=== PATIENT | female | born 1930 | race Caucasian/White ===

== ENCOUNTER 2019-01-28 04:36 | Inpatient (IN) | payer MEDICARE ==
[~2019-01-28] VITALS: Ht 157.5 cm; Wt 46.4 kg
[2019-01-28] VITALS (9 sets, daily range): BP systolic 113–182; BP diastolic 58–117
--- NOTE | 2019-01-28 04:41 | NUR ---
Patient BIB ambulance from [facility] for a GI bleed. Patient states she has had blood in her stool periodically and weakness for a couple months. Patient is in no apparent distress. She is resting comfortably in gurney.
[2019-01-28] MEDS ORDERED: ASPI-515 PO (05:03)
[2019-01-28] MEDS ORDERED: ONDANSETRON 2MG/ML, 2ML ONE (05:09)
[2019-01-28] MEDS ORDERED: ONDANSETRON 2MG/ML, 2ML IVPush ONE (05:30)
[2019-01-28 05:40] LABS: TROPONIN I 0.577 ng/mL (0.000-0.045)
--- NOTE | 2019-01-28 05:41 | NUR ---
Critical lab value: troponin 0.577 notified
--- NOTE | 2019-01-28 05:47 | NUR ---
patient placed on hospital bed. Kept comfortable. no vomiting / diarrhea noted.
--- NOTE | 2019-01-28 06:24 | NUR ---
blood transfusion consent signed. PRBC transfusing at this time.
--- NOTE | 2019-01-28 07:02 | NUR ---
REPORT RECEIVED FROM [facility]. ASSUMING CARE OF PATIENT.
--- NOTE | 2019-01-28 07:34 | NUR ---
CAME INTO ROOM TO UPDATE VITALS. HOSPITALIST IN ROOM. PATIENT READING 81% ON 3L. PROGESSIVELY TITRATED O2 UP TO 6L. Addendum: 01/28/19 at 0738 by [email or web address] PATIENT READING 90% ON 6L NC
--- NOTE | 2019-01-28 07:53 | NUR ---
RADIOLOGY IN ROOM.
--- NOTE | 2019-01-28 07:53 | NUR ---
PATIENT 92% ON 8L OXYMASK
[2019-01-28] MEDS ORDERED: hydrALAzine 20 MG/ML, 1ML IVPush PRN (08:00)
[2019-01-28] MEDS ORDERED: ONDANSETRON 2MG/ML, 2ML IVPush PRN (08:00)
[2019-01-28] MEDS ORDERED: NITROGLYCERIN 0.4 MG BOTTLE (25 TABS) SL PRN (08:00)
[2019-01-28] MEDS ORDERED: TEMAZEPAM 15 MG CAPSULE PO PRN (08:00)
[2019-01-28] MEDS ORDERED: ACETAMINOPHEN 325 MG TABLET PO PRN (08:00)
[2019-01-28] MEDS ORDERED: morphine SULFATE 10 MG/ML, 1ML IVPush PRN (08:00)
[2019-01-28 08:21] LABS: BASOPHILS # (AUTO) 0.19 x10^3/uL (0-0.1); BASOPHILS % (AUTO) 2 % (0-1); EOSINOPHILS % (AUTO) 0 % (1-7); LYMPHOCYTES # (AUTO) 1.34 x10^3/uL (1-3.4); LYMPHOCYTES % (AUTO) 11 % (22-44); MD NO; MEAN CORPUSCULAR HEMOGLOBIN 26.5 pg (27.0-34.8); MEAN CORPUSCULAR VOLUME 82.9 fL (80-100); MEAN PLATELET VOLUME 7.1 fL (7.4-10.4); MONOCYTES # (AUTO) 0.52 x10^3/uL (0.2-0.8); MONOCYTES % (AUTO) 4 % (2-9); NEUTROPHILS # (AUTO) 10.03 x10^3/uL (1.8-6.8); NEUTROPHILS % (AUTO) 83 % (42-75); PLATELET COUNT 360 x10^3/uL (130-400); RED CELL DISTRIBUTION WIDTH 15.8 % (9.6-15.2)
[2019-01-28 08:34] LABS: ALANINE AMINOTRANSFERASE 61 U/L (12-78); ANION GAP 8 mmol/L (5-15); CALCIUM 7.9 mg/dL (8.5-10.1); CHLORIDE 110 mmol/L (98-107); CREATININE 1.11 mg/dL (0.55-1.02); IRON LEVEL 66 mcg/dL (50-170)
--- NOTE | 2019-01-28 08:39 | NUR ---
PROVIDER NOTIFIED OF ABGS.
[2019-01-28 08:43] LABS: HEMOGLOBIN A1C 5.9 % (4.2-6.3)
--- NOTE | 2019-01-28 08:52 | NUR ---
ANDRE BORJA UPDATED.
[2019-01-28 08:59] LABS: % IRON SATURATION 20 % (20-55); ALKALINE PHOSPHATASE 122 U/L (45-117); BILIRUBIN,TOTAL 1.1 mg/dL (0.2-1.0); TOTAL IRON BINDING CAPACITY 336 mcg/dL (250-450); TOTAL PROTEIN 6.4 g/dL (6.4-8.2)
[2019-01-28] MEDS ORDERED: FUROSEMIDE 20 MG/2 ML ONE (10:53)
[2019-01-28] MEDS ORDERED: FUROSEMIDE 40 MG/4 ML ONE (10:54)
[2019-01-28] MEDS ORDERED: ERGOCALCIFEROL 50,000 UNIT CAPSULE PO SCH (11:00)
[2019-01-28] MEDS: METOPROLOL TARTRATE 25 MG TABLET PO SCH ×2 (11:00→18:17)
[2019-01-28] MEDS ORDERED: FUROSEMIDE 40 MG/4 ML IV ONE (11:00)
[2019-01-28] MEDS: PANTOPRAZOLE 40 MG IV IVPush SCH ×2 (11:18→20:15)
[2019-01-28] MEDS ORDERED: FUROSEMIDE 20 MG/2 ML IV ONE (11:30)
[2019-01-28 11:53] LABS: O2 FLOW 12 L/min
[2019-01-28 12:11] LABS: CULTURE INDICATED? YES; MICROSCOPIC INDICATED
[2019-01-28 12:39] LABS: INTERNATIONAL NORMALIZED RATIO 1.01 (0.93-1.1); PROTHROMBIN TIME 10.6 Seconds (9.6-11.5)
[2019-01-28] MEDS: POTASSIUM CHLORIDE 20 MEQ PACKET PO SCH (16:06)
[2019-01-28] MEDS: CEFTRIAXONE PMX 1GM/50ML 50 ML IV SCH (16:07)
[2019-01-28] MEDS: FUROSEMIDE 20 MG/2 ML IV SCH (18:17)
[2019-01-28] MEDS: ATORVASTATIN 40 MG TABLET PO SCH (20:15)
[2019-01-29 00:28] VITALS: BP 126/67
[2019-01-29 04:55] LABS: BASOPHILS # (AUTO) 0.03 x10^3/uL (0-0.1); BASOPHILS % (AUTO) 0 % (0-1); EOSINOPHILS # (AUTO) 0.01 x10^3/uL (0-0.4); EOSINOPHILS % (AUTO) 0 % (1-7); LYMPHOCYTES % (AUTO) 12 % (22-44); MD NO; MEAN CORPUSCULAR HEMOGLOBIN 26.1 pg (27.0-34.8); MEAN CORPUSCULAR HGB CONC 31.6 g/dL (32.4-35.8); MEAN CORPUSCULAR VOLUME 82.7 fL (80-100); MEAN PLATELET VOLUME 6.9 fL (7.4-10.4); MONOCYTES # (AUTO) 0.78 x10^3/uL (0.2-0.8); MONOCYTES % (AUTO) 6 % (2-9); NEUTROPHILS # (AUTO) 10.51 x10^3/uL (1.8-6.8); NEUTROPHILS % (AUTO) 81 % (42-75); PLATELET COUNT 366 x10^3/uL (130-400); RED BLOOD COUNT 3.72 x10^6/uL (3.82-5.3); RED CELL DISTRIBUTION WIDTH 15.6 % (9.6-15.2)
[2019-01-29 05:07] LABS: ANION GAP 6 mmol/L (5-15); CALCIUM 8.4 mg/dL (8.5-10.1); CHLORIDE 107 mmol/L (98-107)
[2019-01-29 05:10] LABS: ALANINE AMINOTRANSFERASE 55 U/L (12-78); ALKALINE PHOSPHATASE 112 U/L (45-117); BILIRUBIN,TOTAL 0.6 mg/dL (0.2-1.0); CHOL/HDL RATIO 3.4; CHOLESTEROL, TOTAL 177 mg/dL (140-239); CREATININE 1.38 mg/dL (0.55-1.02); HDL CHOL % 29 % (28-40); HDL CHOLESTEROL (DIRECT) 52 mg/dL (40-60); LDL CHOLESTEROL,CALCULATED 101 mg/dL (54-169); LDL/HDL RATIO 1.9 (0.5-3.0); TOTAL PROTEIN 6.2 g/dL (6.4-8.2); TRIGLYCERIDES 122 mg/dL (50-200); VLDL CHOLESTEROL 24 mg/dL (0-25)
[2019-01-29 05:39] VITALS: BP 125/68
[2019-01-29] MEDS: METOPROLOL TARTRATE 25 MG TABLET PO SCH ×2 (05:40→16:58)
[2019-01-29 08:00] VITALS: BP 150/74
[2019-01-29] MEDS: FUROSEMIDE 20 MG/2 ML IV SCH (08:58)
[2019-01-29] MEDS: PANTOPRAZOLE 40 MG IV IVPush SCH ×2 (08:58→20:02)
[2019-01-29] MEDS: POTASSIUM CHLORIDE 20 MEQ PACKET PO SCH (08:58)
[2019-01-29] MEDS: FUROSEMIDE 40 MG TABLET PO SCH (10:30)
[2019-01-29] MEDS: CEFTRIAXONE PMX 1GM/50ML 50 ML IV SCH (13:00)
[2019-01-29 14:32] VITALS: BP 150/74
[2019-01-29 19:40] VITALS: BP 125/58
[2019-01-29] MEDS: ATORVASTATIN 40 MG TABLET PO SCH (20:02)
[2019-01-30 03:24] VITALS: BP 142/68
[2019-01-30 05:14] LABS: BASOPHILS # (AUTO) 0.03 x10^3/uL (0-0.1); BASOPHILS % (AUTO) 0 % (0-1); EOSINOPHILS # (AUTO) 0.11 x10^3/uL (0-0.4); EOSINOPHILS % (AUTO) 1 % (1-7); LYMPHOCYTES # (AUTO) 1.26 x10^3/uL (1-3.4); LYMPHOCYTES % (AUTO) 12 % (22-44); MD NO; MEAN CORPUSCULAR HEMOGLOBIN 26.3 pg (27.0-34.8); MEAN CORPUSCULAR HGB CONC 31.1 g/dL (32.4-35.8); MEAN CORPUSCULAR VOLUME 84.5 fL (80-100); MEAN PLATELET VOLUME 7.3 fL (7.4-10.4); MONOCYTES # (AUTO) 0.62 x10^3/uL (0.2-0.8); MONOCYTES % (AUTO) 6 % (2-9); NEUTROPHILS # (AUTO) 8.38 x10^3/uL (1.8-6.8); NEUTROPHILS % (AUTO) 81 % (42-75); PLATELET COUNT 322 x10^3/uL (130-400); RED BLOOD COUNT 3.48 x10^6/uL (3.82-5.3); RED CELL DISTRIBUTION WIDTH 15.7 % (9.6-15.2)
[2019-01-30 05:27] LABS: ANION GAP 7 mmol/L (5-15); CALCIUM 8.1 mg/dL (8.5-10.1); CHLORIDE 106 mmol/L (98-107); CREATININE 1.21 mg/dL (0.55-1.02)
[2019-01-30] MEDS: METOPROLOL TARTRATE 25 MG TABLET PO SCH ×2 (06:27→18:18)
[2019-01-30 06:57] VITALS: BP 138/76
[2019-01-30] MEDS: PANTOPRAZOLE 40 MG IV IVPush SCH (10:17)
[2019-01-30] MEDS: POTASSIUM CHLORIDE 20 MEQ PACKET PO SCH (10:17)
[2019-01-30] MEDS: FUROSEMIDE 40 MG TABLET PO SCH (10:18)
[2019-01-30] MEDS: CEFTRIAXONE PMX 1GM/50ML 50 ML IV SCH (13:19)
[2019-01-30 15:37] VITALS: BP 143/72
[2019-01-30] MEDS ORDERED: PROPOFOL 10 MG/ML, 20ML ONE (16:36)
[2019-01-30 18:41] VITALS: BP 140/67
[2019-01-30] MEDS: PANTOPROZOLE 40MG TABLET PO SCH (20:30)
[2019-01-30] MEDS: ATORVASTATIN 40 MG TABLET PO SCH (20:30)
[2019-01-31 00:43] VITALS: BP 104/72
[2019-01-31 01:08] VITALS: BP 137/65
[2019-01-31 05:03] LABS: BASOPHILS # (AUTO) 0.04 x10^3/uL (0-0.1); BASOPHILS % (AUTO) 1 % (0-1); EOSINOPHILS # (AUTO) 0.22 x10^3/uL (0-0.4); EOSINOPHILS % (AUTO) 3 % (1-7); LYMPHOCYTES # (AUTO) 1.21 x10^3/uL (1-3.4); LYMPHOCYTES % (AUTO) 17 % (22-44); MD NO; MEAN CORPUSCULAR HEMOGLOBIN 26.8 pg (27.0-34.8); MEAN CORPUSCULAR HGB CONC 31.6 g/dL (32.4-35.8); MEAN CORPUSCULAR VOLUME 84.6 fL (80-100); MEAN PLATELET VOLUME 7.6 fL (7.4-10.4); MONOCYTES # (AUTO) 0.68 x10^3/uL (0.2-0.8); MONOCYTES % (AUTO) 10 % (2-9); NEUTROPHILS # (AUTO) 4.91 x10^3/uL (1.8-6.8); NEUTROPHILS % (AUTO) 70 % (42-75); PLATELET COUNT 324 x10^3/uL (130-400); RED BLOOD COUNT 3.62 x10^6/uL (3.82-5.3); RED CELL DISTRIBUTION WIDTH 15.2 % (9.6-15.2)
[2019-01-31 05:05] LABS: ANION GAP 7 mmol/L (5-15); CALCIUM 8.2 mg/dL (8.5-10.1); CHLORIDE 103 mmol/L (98-107); CREATININE 1.12 mg/dL (0.55-1.02)
[2019-01-31] MEDS: METOPROLOL TARTRATE 25 MG TABLET PO SCH (05:48)
[2019-01-31 07:28] VITALS: BP 154/74
[2019-01-31] MEDS: PANTOPROZOLE 40MG TABLET PO SCH (09:18)
[2019-01-31] MEDS: FUROSEMIDE 40 MG TABLET PO SCH (09:18)
[2019-01-31] MEDS: POTASSIUM CHLORIDE 20 MEQ PACKET PO SCH (09:18)
[2019-01-31] MEDS ORDERED: ATOR40TA78 PO (12:27)
[2019-01-31] MEDS ORDERED: PANT40TA5 PO (12:27)
[2019-01-31] MEDS ORDERED: METO-93 PO (12:27)
[2019-01-31] MEDS ORDERED: FURO-93 PO (12:27)
[2019-01-31] MEDS ORDERED: SULF1TAB24 PO (12:29)
[2019-01-31] MEDS ORDERED: METOPROLOL SUCCINATE 50 MG TAB.ER.24H PO SCH (12:30)
[2019-01-31] MEDS: CEFTRIAXONE PMX 1GM/50ML 50 ML IV SCH ×2 (12:52→13:00)
[2019-01-31 13:13] VITALS: BP 146/81
[2019-01-31] MEDS ORDERED: POTA10TA5 PO (15:31)
[2019-02-01] MEDS ORDERED: POTASSIUM CHLORIDE 10 MEQ TABLET.ER PO SCH (09:00)
[2019-02-01] MEDS ORDERED: FUROSEMIDE 20 MG TABLET PO SCH (09:00)
== END 2019-01-31 15:55 | disposition home or self-care (01) | DRG 377 ==
LOC: ED 05:04 → EDIP 05:15 → 5SO 09:29 → DCLOUNGE 01-31 15:45
PROVIDERS: ADMIT Internal Medicine; ATTEND Family Medicine
PROC: 30233N1 Transfusion of Nonautologous Red Blood Cells into Peripheral Vein, Percutaneous Approach (ICD-10-PCS; principal; 2019-01-28)
PROC: 0DB68ZX Excision of Stomach, Via Natural or Artificial Opening Endoscopic, Diagnostic (ICD-10-PCS; 2019-01-30)
PROC: 0W3P8ZZ Control Bleeding in Gastrointestinal Tract, Via Natural or Artificial Opening Endoscopic (ICD-10-PCS; 2019-01-30)
DX: K25.4 Chronic or unspecified gastric ulcer with hemorrhage (principal); I21.4 Non-ST elevation (NSTEMI) myocardial infarction; J96.01 Acute respiratory failure with hypoxia; E87.2 Acidosis; D62 Acute posthemorrhagic anemia; J81.1 Chronic pulmonary edema; N17.9 Acute kidney failure, unspecified; N39.0 Urinary tract infection, site not specified; K29.71 Gastritis, unspecified, with bleeding; K26.4 Chronic or unspecified duodenal ulcer with hemorrhage; D64.9 Anemia, unspecified; Z88.0 Allergy status to penicillin; B95.8 Unspecified staphylococcus as the cause of diseases classified elsewhere; E11.9 Type 2 diabetes mellitus without complications; E78.5 Hyperlipidemia, unspecified; F12.90 Cannabis use, unspecified, uncomplicated; I08.2 Rheumatic disorders of both aortic and tricuspid valves; K31.819 Angiodysplasia of stomach and duodenum without bleeding; Z66 Do not resuscitate; Z79.82 Long term (current) use of aspirin; Z80.49 Family history of malignant neoplasm of other genital organs; Z86.73 Personal history of transient ischemic attack (TIA), and cerebral infarction without residual deficits; Z87.891 Personal history of nicotine dependence
CPT/HCPCS: 36415; 36430; 36600; 71045; 78582; 80048; 80053; 80061; 81001; 82306; 82607; 82803; 83036; 83540; 83550; 83735; 83880; 84100; 84443; 84484; 85014; 85018; 85025; 85379; 85610; 85730; 86850; 86900; 86923; 87040; 87077; 87086; 87186; 88305; 93005; 93306; 96374; G0378; J0696; J1940; J2405; J2704; A9540; A9558; C9113; J0360; P9016